=== PATIENT | female | born 1985 | race African-American/Black ===

== ENCOUNTER 2018-04-08 21:50 | Emergency (ER) | payer SELFPAY ==
--- NOTE | 2018-04-09 00:49 | ER Document Report ---
ED General - General Chief Complaint: Vomiting/Diarrhea Stated Complaint: VOMITING/VERY SICK Time Seen by Provider: 04/09/18 00:48 Mode of Arrival: Ambulatory Information source: Patient Notes: HISTORY OF PRESENT ILLNESS: Patient is a 32-year-old female with no significant past medical history who presents with vomiting and diarrhea that is nonbloody and nonbilious, occurring several times over the last 24 hours. Location: Abdomen Onset: Sudden Provocation: "Thinking of food" Quality: Nausea Radiation: None Severity: Moderate Timing: Intermittent Known sick contacts: None Associated symptoms: Denies fevers or chills Home treatment: None Events leading up: "I went to a [employer] yesterday and it started afterwards" REVIEW OF SYSTEMS: CONSTITUTIONAL : Denies fever or chills, no sweats. Denies recent illness. EENT: Denies eye, ear, throat, or mouth pain or symptoms. Denies nasal or sinus congestion. CARDIOVASCULAR: Denies chest pain. RESPIRATORY: Denies cough, cold, or chest congestion. Denies shortness of breath, difficulty breathing, or wheezing. GASTROINTESTINAL: Denies abdominal pain. Positive for nonbloody and nonbilious vomiting and diarrhea. Denies constipation. GENITOURINARY: Denies difficulty urinating, painful urination, burning, frequency, or blood in urine. FEMALE GENITOURINARY: Denies vaginal bleeding, abnormal or irregular periods. MUSCULOSKELETAL: Denies body aches. Denies neck or back pain or joint pain or swelling. SKIN: Denies rash or skin lesions. HEMATOLOGIC : Denies easy bruising or bleeding. LYMPHATIC: Denies swollen, enlarged glands. NEUROLOGICAL: Denies altered mental status or loss of consciousness. Denies headache. Denies weakness or paralysis or loss of use of either side. Denies problems with gait or speech. Denies sensory or motor loss. PSYCHIATRIC: Denies anxiety or stress or depression. All other systems reviewed and negative. PHYSICAL EXAMINATION: GENERAL: Well-appearing, well-nourished and in no acute distress. HEAD: Atraumatic, normocephalic. No scalp deformity, depression, or crepitance. EYES: Pupils are 3 mm and equal/round/reactive to light, extraocular movements intact, sclera anicteric, conjunctiva are normal. ENT: Nares patent bilaterally, oropharynx clear without exudates or palatal petechia. Moist mucous membranes. No tonsil hypertrophy. NECK: Normal range of motion, supple without lymphadenopathy. LUNGS: Breath sounds present, equal, and clear to auscultation bilaterally. No wheezes, rales, or rhonchi. HEART: Regular rate and rhythm without murmurs, rubs, or gallops. 2+ peripheral pulses. Normal capillary refill. ABDOMEN: Soft, nontender, nondistended. Normoactive bowel sounds. No guarding, no rebound. No masses appreciated. BACK: Normal contour, no midline tenderness. Rectal exam deferred. PELVC: Deferred. EXTREMITIES: Normal range of motion, no pitting or edema. No cyanosis. NEUROLOGICAL: No focal neurological deficits. Moves all extremities spontaneousl y and on command. PSYCH: Normal mood, normal affect. No suicidal thoughts/ideations. No homocidal thoughts/ideations. No hallucinations. SKIN: Warm, dry, normal turgor, no rashes or lesions noted. ASSESSMENT AND PLAN: This patient is a 32-year-old female who presents with likely viral gastroenteritis given presenting symptoms, especially in the setting of eating at a libertarian with reported "food sitting around." Unlikely to represent bacterial etiology given lack of fever or toxic appearance. 1. Will obtain labs, give oral Zofran with loperamide, and reassess after oral challenge. 2. Will likely discharge home. TRAVEL OUTSIDE OF THE [place] IN LAST 30 DAYS: No - Related Data Allergies/Adverse Reactions: No Known Allergies Allergy (Unverified 04/08/18 21:55) Past Medical History - General Information source: Patient - Social History Smoking Status: Never Smoker Chew tobacco use (# tins/day): No Frequency of alcohol use: None Drug Abuse: Marijuana Lives with: Alone Family History: Reviewed & Not Pertinent Patient has suicidal ideation: No Patient has homicidal ideation: No - Medical History Medical History: Negative - Past Medical History Cardiac Medical History: Reports: None Pulmonary Medical History: Reports: None EENT Medical History: Reports: None Neurological Medical History: Reports: None Endocrine Medical History: Reports: None Renal/ Medical History: Reports: None. Denies: Hx Peritoneal Dialysis Malignancy Medical History: Reports: None GI Medical History: Reports: None Musculoskeletal Medical History: Reports None Skin Medical History: Reports None Psychiatric Medical History: Reports: None Traumatic Medical History: Reports: None Infectious Medical History: Reports: None Surgical Hx: Negative Past Surgical History: Reports: None - Immunizations Immunizations up to date: Yes Hx Diphtheria, Pertussis, Tetanus Vaccination: Yes Physical Exam - Vital signs Vitals: Temp Pulse Resp BP Pulse Ox 99.4 F 76 19 91/62 L 100 04/08/18 22:02 04/08/18 22:02 04/08/18 22:02 04/08/18 22:02 04/08/18 22:02 Course - Re-evaluation Re-evalutation: 04/09/18 03:05 Patient is able to take oral intake without difficulties. She will be discharged home with return precautions and follow-up. Patient voices both understanding and agreeing with the plan. - Vital Signs Vital signs: Temp Pulse Resp BP Pulse Ox 99.4 F 88 14 124/69 100 04/08/18 22:02 04/09/18 03:22 04/09/18 03:22 04/09/18 03:22 04/09/18 03:22 Discharge - Discharge Clinical Impression: Viral syndrome, Gastroenteritis Condition: Good Disposition: HOME, SELF-CARE Instructions: Gastroenteritis (adult) ([facility]) Additional Instructions: You have been evaluated in the Emergency Department for vomiting and diarrhea that likely happened because of either a virus or exposure to food borne illness. Please follow-up with your primary physician as instructed in 1 week to be rechecked. Return to the Emergency Department if you experience worsening symptoms, high fevers, uncontrollable nausea/diarrhea, or any other concerning symptoms. Prescriptions: Loperamide HCl [Imodium A-D] 2 mg PO Q6HP PRN #30 capsule PRN Reason: Diarrhea Ondansetron [Zofran Odt 4 mg Tablet] 1 tab PO Q6HP PRN #30 tab.rapdis PRN Reason: For Nausea/Vomiting Forms: Return to Work Print Language: Albanian
[2018-04-09] MEDS ORDERED: LOPERAMIDE HCL 2 MG CAPSULE PO ONE (02:41)
[2018-04-09] MEDS ORDERED: ONDANSETRON 4 MG TAB.RAPDIS PO ONE (02:41)
[2018-04-09 03:23] VITALS: BP 124/69
== END 2018-04-09 03:23 | disposition home or self-care (01) ==
LOC: ER 21:50
DX: A08.4 Viral intestinal infection, unspecified (principal); R11.10 Vomiting, unspecified; R19.7 Diarrhea, unspecified
CPT/HCPCS: 99283; S0119